=== PATIENT | female | born 1975 | race Asian ===

== ENCOUNTER 2016-10-04 16:16 | Inpatient (IN) | payer BC ==
[~2016-10-04] VITALS: Ht 165.1 cm; Wt 98.0 kg
[2016-10-04] MEDS: AMPICILLIN 1,000 MG in NACL 0.9% 50 ML IV SCH (03:00)
[2016-10-04] MEDS ORDERED: PREN-546 PO (16:52)
[2016-10-04] MEDS ORDERED: OXYTOCIN 10 UNITS/ML VIAL IM PRN (18:05)
[2016-10-04] MEDS ORDERED: NALBUPHINE 10 MG/ML AMP IVP PRN (18:05)
[2016-10-04] MEDS ORDERED: PROMETHAZINE 25 MG/ML VIAL IVP PRN (18:05)
[2016-10-04] MEDS ORDERED: METHYLERGONOVINE 0.2 MG/ML AMP IM SCH (18:05)
[2016-10-04] MEDS ORDERED: AMPICILLIN 2,000 MG in NACL 0.9% 100 ML IV SCH (18:14)
[2016-10-04] MEDS ORDERED: OXYTOCIN 20 UNITS/LR PREMIX 1,000 ML IV SCH (18:20)
[2016-10-04] MEDS: LACTATED RINGERS 1,000 ML IV SCH (18:31)
[2016-10-04] MEDS ORDERED: AMPICILLIN 2,000 MG VIAL ONE (18:42)
[2016-10-04] MEDS ORDERED: OXYTOCIN 20 UNITS/LR PREMIX 1,000 ML IV ONE (18:43)
[2016-10-04 18:48] LABS: BASOPHILS # (AUTO) 0.1 K/uL (0.00-0.22); BASOPHILS % (AUTO) 0.8 % (0.0-2.0); EOSINOPHILS # (AUTO) 0.1 K/uL (0-0.4); EOSINOPHILS % (AUTO) 1.4 % (0.0-4.0); HEMATOCRIT 35.4 % (36-48); HEMOGLOBIN 11.6 g/dL (12.0-16.0); LYMPHOCYTES # (AUTO) 1.3 K/uL (2.5-16.5); LYMPHOCYTES % (AUTO) 17.5 % (20.5-51.1); MEAN CORPUSCULAR HEMOGLOBIN 30 pg (27-31); MEAN CORPUSCULAR HGB CONC 33 g/dL (33-37); MEAN CORPUSCULAR VOLUME 92 fL (80-94); MONOCYTES # (AUTO) 0.4 K/uL (0.8-1.0); MONOCYTES % (AUTO) 5.5 % (1.7-9.3); NEUTROPHILS # (AUTO) 5.7 K/uL (1.8-7.7); NEUTROPHILS % (AUTO) 74.8 % (42.2-75.2); PLATELET COUNT (AUTO) 194 K/uL (140-450); RED BLOOD CELL COUNT(AUTO) 3.86 MIL/uL (4.20-5.40); RED CELL DISTRIBUTION WIDTH 13.1 % (11.6-13.7); WHITE BLOOD COUNT (AUTO) 7.6 K/uL (4.8-10.8)
[2016-10-04 19:12] LABS: APPEARANCE,URINE CLEAR (CLEAR); BILIRUBIN,URINE NEGATIVE (NEGATIVE); BLOOD, URINE 1+ (NEGATIVE); COLOR,URINE YELLOW (YELLOW); LEUKOCYTE ESTERASE ,URINE NEGATIVE (NEGATIVE); NITRITE, URINE NEGATIVE (NEGATIVE); PH,URINE 6.5 (5.0-9.0); PROTEIN,URINE NEGATIVE (NEGATIVE); UGLUCOSE 1+ (NEGATIVE); UROBILINOGEN,URINE 0.2 EU/dL (0.2 - 1)
[2016-10-04 19:18] LABS: BACTERIA,URINE RARE /HPF (None Seen); RBC,URINE 0-5 /HPF (0-5); WBC,URINE 0-3 /HPF (0-5)
[2016-10-04] MEDS ORDERED: ROPIVACAINE 0.2%/NS PREMIX 250 ML EPI ONE (22:20)
[2016-10-04] MEDS ORDERED: AMPICILLIN 1,000 MG VIAL ONE (22:49)
[2016-10-05] MEDS: LACTATED RINGERS 1,000 ML IV SCH (03:00)
[2016-10-05] MEDS ORDERED: AMPICILLIN 1,000 MG VIAL ONE ×2 (03:02→06:48)
[2016-10-05] MEDS: AMPICILLIN 1,000 MG in NACL 0.9% 50 ML IV SCH (07:00)
[2016-10-05] MEDS ORDERED: CITRIC ACID/SODIUM CITRATE 30 ML UDC PO SCH ×2 (07:30→08:30)
[2016-10-05] MEDS ORDERED: OXYTOCIN 10 UNITS/ML VIAL ONE ×2 (07:55→08:38)
[2016-10-05] MEDS ORDERED: METHYLERGONOVINE 0.2 MG/ML AMP ONE (07:56)
[2016-10-05] MEDS ORDERED: CITRIC ACID/SODIUM CITRATE 30 ML UDC ONE (08:34)
[2016-10-05] MEDS ORDERED: ePHEDrine 50 MG/ML VIAL ONE (08:38)
[2016-10-05] MEDS ORDERED: LIDOCAINE/EPI 2% 1:100000 20 ML VIAL INJ ONE (08:38)
--- NOTE | 2016-10-05 08:42 | NUR ---
PATIENT HAS BEEN SCREENED AND CATEGORIZED LOW NUTRITION RISK. PATIENT WILL BE SEEN WITHIN 7 DAYS OF ADMISSION. 10/11/[address]
[2016-10-05] MEDS ORDERED: LIDOCAINE/EPI MPF 2%1:200000 10 ML VIAL INJ ONE (08:48)
[2016-10-05] MEDS ORDERED: SODIUM BICARBONATE 8.4% PFS 50 MEQ/50 ML SYR IVP ONE (08:48)
[2016-10-05] MEDS ORDERED: MORPHINE PRES FREE 10 MG/10 ML AMP IV ONE (08:48)
[2016-10-05] MEDS ORDERED: TRIAMCINOLONE 40 MG/ML 5ML VIAL ONE (09:10)
[2016-10-05] MEDS ORDERED: KETOROLAC 60 MG/2 ML VIAL IM PRN (09:20)
[2016-10-05] MEDS ORDERED: diphenhydrAMINE 50 MG/ML VIAL IVP PRN (09:20)
[2016-10-05] MEDS ORDERED: ONDANSETRON 4 MG/2 ML VIAL IVP PRN ×2 (09:20→15:00)
[2016-10-05] MEDS ORDERED: NALBUPHINE 10 MG/ML AMP IVP PRN (09:20)
[2016-10-05] MEDS ORDERED: NALOXONE 0.4 MG/ML VIAL IVP PRN ×3 (09:20)
[2016-10-05] MEDS ORDERED: OXYTOCIN 20 UNITS/LR PREMIX 1,000 ML IV ONE (09:51)
[2016-10-05] MEDS ORDERED: ONDANSETRON 4 MG/2 ML VIAL ONE (09:52)
[2016-10-05] MEDS ORDERED: KETOROLAC 60 MG/2 ML VIAL IM ONE (10:13)
[2016-10-05] MEDS ORDERED: OXYTOCIN 20 UNITS/LR PREMIX 1,000 ML IV SCH ×2 (22:55→23:00)
[2016-10-05] MEDS: OXYTOCIN 20 UNITS/LR PREMIX 1,000 ML IV SCH (23:03)
[2016-10-06] MEDS: OXYTOCIN 20 UNITS/LR PREMIX 1,000 ML IV SCH (06:11)
[2016-10-06 06:40] LABS: BASOPHILS % (AUTO) 0.3 % (0.0-2.0); EOSINOPHILS # (AUTO) 0.1 K/uL (0-0.4); EOSINOPHILS % (AUTO) 0.8 % (0.0-4.0); HEMATOCRIT 28.4 % (36-48); HEMOGLOBIN 9.8 g/dL (12.0-16.0); LYMPHOCYTES # (AUTO) 1.1 K/uL (2.5-16.5); LYMPHOCYTES % (AUTO) 10.1 % (20.5-51.1); MEAN CORPUSCULAR HEMOGLOBIN 31 pg (27-31); MEAN CORPUSCULAR HGB CONC 34 g/dL (33-37); MEAN CORPUSCULAR VOLUME 91 fL (80-94); MONOCYTES # (AUTO) 0.5 K/uL (0.8-1.0); MONOCYTES % (AUTO) 4.9 % (1.7-9.3); NEUTROPHILS # (AUTO) 8.9 K/uL (1.8-7.7); NEUTROPHILS % (AUTO) 83.9 % (42.2-75.2); PLATELET COUNT (AUTO) 162 K/uL (140-450); RED BLOOD CELL COUNT(AUTO) 3.11 MIL/uL (4.20-5.40); RED CELL DISTRIBUTION WIDTH 13.2 % (11.6-13.7); WHITE BLOOD COUNT (AUTO) 10.6 K/uL (4.8-10.8)
[2016-10-06] MEDS ORDERED: KETOROLAC 30 MG/ML VIAL IVP SCH (08:10)
[2016-10-06] MEDS ORDERED: HYDROcodone/APAP 5/325 MG 1 TAB TAB PO PRN (08:15)
[2016-10-06] MEDS ORDERED: SIMETHICONE 80 MG TAB.CHEW PO PRN (08:20)
[2016-10-06] MEDS ORDERED: BISACODYL 5 MG TABEC PO PRN (08:20)
[2016-10-06] MEDS: IBUPROFEN 800 MG TAB PO PRN (17:02)
[2016-10-07] MEDS: IBUPROFEN 800 MG TAB PO PRN ×3 (01:12→17:20)
[2016-10-07] MEDS: HYDROcodone/APAP 5/325 MG 1 TAB TAB PO PRN ×3 (07:09→23:52)
[2016-10-08] MEDS: IBUPROFEN 800 MG TAB PO PRN ×3 (02:54→18:29)
[2016-10-09] MEDS: HYDROcodone/APAP 5/325 MG 1 TAB TAB PO PRN ×2 (02:38→14:41)
[2016-10-09] MEDS: IBUPROFEN 800 MG TAB PO PRN ×2 (05:04→11:03)
[2016-10-09] MEDS ORDERED: IBUP-2213 PO (10:00)
== END 2016-10-09 16:00 | disposition home or self-care (01) | DRG 766 ==
LOC: MLD 16:16 → OBSVTOIN 18:03 → MFCC 10-05 11:39
PROVIDERS: ADMIT Obstetrics & Gynecology; ATTEND Obstetrics & Gynecology
PROC: 3E0S3CZ (ICD-10-PCS; 2016-10-04)
PROC: 00HU33Z Insertion of Infusion Device into Spinal Canal, Percutaneous Approach (ICD-10-PCS; 2016-10-04)
PROC: 10D00Z1 Extraction of Products of Conception, Low, Open Approach (ICD-10-PCS; principal; 2016-10-05 08:00)
PROC: 3E0234Z Introduction of Serum, Toxoid and Vaccine into Muscle, Percutaneous Approach (ICD-10-PCS; 2016-10-06)
DX: O76 Abnormality in fetal heart rate and rhythm complicating labor and delivery (principal); O63.0 Prolonged first stage (of labor); O69.1XX0 Labor and delivery complicated by cord around neck, with compression, not applicable or unspecified; O99.214 Obesity complicating childbirth; Z68.35 Body mass index [BMI] 35.0-35.9, adult; Z3A.39 39 weeks gestation of pregnancy; Z37.0 Single live birth; Z82.49 Family history of ischemic heart disease and other diseases of the circulatory system; Z23 Encounter for immunization; O09.523 Supervision of elderly multigravida, third trimester
CPT/HCPCS: 36415; 51702; 76805; 81001; 85025; 86592; 86886; 86900; 86901; 90715; G0378; J0290; J0690; J1885; J2001; J2210; J2270; J2405; J2590; J2795; J3301; J7060; J7120; Q0092